=== PATIENT | female | born 1980 | race Caucasian/White ===

== ENCOUNTER 2016-07-08 20:29 | Inpatient (IN) | payer OTHER ==
[2016-07-08] MEDS: BETAMETHASONE IM SYRINGE IM SCH (22:07)
[2016-07-08] MEDS ORDERED: CALCIUM CARBONATE 500 MG CHEWABLE TAB PO PRN (22:08)
[2016-07-08] MEDS ORDERED: ACETAMINOPHEN 325 MG TAB PO PRN (22:08)
[2016-07-08] MEDS ORDERED: ZOLPIDEM TARTRATE 5 MG TAB PO PRN (22:09)
--- NOTE | 2016-07-08 22:15 | OBPROG ---
OBG Progress Note Assessment/Plan: Assessment: 35 y/o female at 24+3 wks EGA w/ bleeding - hemodynamically stable and bleeding subsiding. Radiologist just called and relayed the results of her US here tonight - it appears to be a complete posterior placenta previa w/ placenta covering the os, unlike the imaging report at the [facility]. EFW of 730gms (56%). Plan: Continue current plan as dictated in H&P - - Bedrest w/ BRP - Doptones q4 hrs. BTMZ for FLM. - Continuous tocometer to monitor for contractions - Inpatient care until no bleeding x 24 hrs. 07/08/16 22:12 ICD10 Worksheet Patient Problems: Problems Problem Status Onset Hemorrhage affecting at 23 to 26 weeks gestation, antepartum Acute Placenta previa antepartum in second trimester Acute - ICD10 Problem Qualifiers (1) Hemorrhage affecting at 23 to 26 weeks gestation, antepartum (2) Placenta previa antepartum in second trimester
[2016-07-08 22:53] LABS: % IMMATURE GRANULYOCYTES 0.5 % (0.0-1.1); ABSOLUTE IMMATURE GRANULOCYTES 0.05 10^3/uL (0.00-0.10); ADD DIFF? NO; ADD MORPH? NO; ADD SCAN? NO; ATYPICAL LYMPHOCYTE FLAG 0 (0-99); FRAGMENT RBC FLAG 0 (0-99); HEMATOCRIT 37.7 % (38.0-47.0); HEMOGLOBIN 12.8 g/dL (12.6-16.3); LEFT SHIFT FLG 0 (0-99); LIPEMIA HEMOLYSIS FLAG 90 (0-99); MEAN CELL VOLUME 94.3 fL (81.5-99.8); MEAN PLATELET VOLUME 10.1 fL (8.7-11.7); PLATELET CLUMPS FLAG 10 (0-99); PLATELET COUNT 220 10^3/uL (150-400); RED CELL DISTRIBUTION WIDTH 12.5 % (11.5-15.2)
--- NOTE | 2016-07-08 23:31 | GHP ---
[f rep st] HISTORY AND PHYSICAL DATE OF ADMISSION: 07/08/2016 CHIEF COMPLAINT: Vaginal bleeding with known marginal posterior placenta previa with most recent ul trasound showing it approximates the cervix. HISTORY OF PRESENT ILLNESS: The patient is a 35-year-old, 3, para 0-1-1-0, female at 24 wee ks and 3 days estimated gestational age by last menstrual period, consistent with first-trimester ul trasound, who presents to labor and delivery after an episode of bleeding. Patient has known margin al posterior placenta previa with most recent ultrasound showing it approximates the cervix. She rivera s had one prior episode of bleeding around 18 weeks' gestation which resolved spontaneously at the t maryana of diagnosis. She reports that she always has a little bit of vaginal discharge and did not not ice anything different. However, when she went to go to the bathroom, she realized that there was b loody vaginal discharge that had soaked through her underwear onto her pants. She denies any gushes of fluid or gushes of bleeding. It was approximately a half-dollar size amount. She denies any cr amping or contractions. She feels good movement. No other complaints. The patient has been receiving all of her ultrasounds with the [facility] with the erinatologist at the [place]. Her most recent ultrasound was on June 20 showing a low-lying suraj centa, no other specific information given on the exact location. The size of the baby at that time was consistent with her estimated due date with an estimated weight of 486 g at the 58th perc entile. There was a suspicion of an ear anomaly on the fetus, with maternal history of anomalous ea rs and hearing loss. 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 PAST SURGICAL HISTORY: Suction D and C in February 2015 for missed , tonsillectomy, ear bryant narendra, bilateral lower leg compartment syndrome, shoulder surgery 2007, Amnioport 2015. ALLERGIES: Sulfa. MEDICATIONS: Albuterol inhaler, vitamin, Pulmicort Flexhaler. PAST PERFORMANCE IMPROVEMENT CONSULTANT HISTORY: D and C in 2014. OB HISTORY: 1. In 2014, SAB with D and C for missed . 2. In 2016, 25 weeks and 3 days delivery after LUTO diagnosed with Amnioport placement. SOCIAL HISTORY: Negative for alcohol, tobacco or drug use. FAMILY HISTORY: Negative for defects, chromosomal abnormalities, mental retardation, or inher ited conditions. LABS: Blood type A positive, antibody screen negative, varicella immune, rubella immune, R TN nonreactive, urine culture negative, hepatitis B surface antigen negative, HIV negative, gonorrhe a and chlamydia negative. PHYSICAL EXAMINATION: VITAL SIGNS: Blood pressure 124/68, heart rate 72, respiratory rate 18, temp 37.1 degrees Celsius. Doptones in the 140s to 150s. Tocometer: Initially very slight possible irritability for the first 5 minutes, that then resolved. GENERAL: Not acute, no distress. Well-developed, well-bob shed female. CARDIOVASCULAR: Regular rate and rhythm. CHEST: Clear to auscultation bilaterally. ABDOMEN: Gravid and nontender. : On sterile speculum exam: The cervix appears closed with bro wn discharge noted with no active bright red bleeding. RADIOLOGY: An official ultrasound was obtained and official results pending at time of this dictati on. However, the images were reviewed in live imaging with the communications field technician, showing a cer vix that was long measuring 4.4 cm. On abdominal imaging, it appeared that the placenta was posteri or and clear of the os. However, on vaginal imaging, it appeared that there was either a tail of pl acenta versus a small amount of blood and clot extending from the placental edge over the cervix on lateral views. There was good movement, and normal cardiac activity visualized. The cervix w as seen and clearly noted to be closed and long on imaging. ASSESSMENT: Patient is a 35-year-old, 3, para 0-1-1-0, female at 24 weeks and 3 days estima ly gestational age with bleeding and with a marginal placenta previa and a second episode of bleedi ng. Currently, hemodynamically stable with bleeding subsiding and slowing. PLAN: 1. Admit for observation. 2. status reassuring, we will continue Doptones q.4 hours. Will initiate betamethasone cours e for lung maturity. 3. No signs of labor and cervix closed on visualization. 4. Bleeding: The patient's bleeding has already begun to subside with only brown discharge noted o n exam. However, since this is her second episode of bright red bleeding with a known low-lying suraj centa previa that now appears to be either a complete previa or marginal previa with some associated abruption or bleeding above the cervix, will plan for conservative management at this time with mod ified bed rest in the hospital until her bleeding has resolved for over 24 hours. We will give a co urse of steroids for lung maturity, and monitor closely for any signs of abruption or labor. A CBC and type and screen have been ordered. We will also check a Kleihauer-Betke to assure that this is not an associated small abruption associated with her low-lying placenta. I have disc ussed the possibility with the patient that she may need to be discharged on modified bed rest for t he period of time until this bleeding resolves. 5. SCDs for DVT prophylaxis. /[id number]/MODL
[2016-07-09] MEDS ORDERED: LR 1,000 ML IV PRN (06:30)
[2016-07-09] MEDS ORDERED: TERBUTALINE SULFATE 1 MG/ML VIAL IV PRN (06:30)
[2016-07-09] MEDS ORDERED: EPSOM SALT 454 GM TP PRN (06:30)
[2016-07-09] MEDS ORDERED: IBUPROFEN 600 MG TAB PO PRN (06:30)
[2016-07-09] MEDS ORDERED: OXYTOCIN/RINGERS LACTATE 1,000 ML IV PRN (06:30)
[2016-07-09] MEDS ORDERED: LIDOCAINE 1% 30 ML SDV SC PRN (06:30)
[2016-07-09] MEDS ORDERED: OLIVE OIL 118 ML BTL MISC PRN (06:30)
--- NOTE | 2016-07-09 08:40 | SOAPPROG ---
SOAP Progress Note Assessment/Plan: Assessment: 35 y.o. female at 24 4/7 weeks admitted to L&D following second episode of vaginal bleeding with placenta previa. Patient was admitted to L&D with continuous toco and EFM Q4H. VSS- afebrile. Plan: Admit patient for OBS. Continuous [place] with EFM Q4H. Betamethasone 12.5 mg IM x 2 doses. Maintain modified bedrest and anticipate discharge to home tomorrow with no further bleeding. 07/09/16 08:36 Subjective: Patient reports feeling comfortable with occasional cramping/ tightening over abdomen, < 1 x hour. Reports decreased vaginal bleeding since episode last night. Reports good movement. Denies LOF. Eating and drinking well without n/v. Appropriate mood with good support system. Objective: Laboratory Results 07/08/16 22:35 - Time Spent With Patient Time Spent With Patient: 20 minutes - Pending Discharge Pending Discharge Within 24 Hours: Yes Pending Discharge Date: 07/10/16 Pending Discharge Time: 11:00 Physical Exam - Physical Exam General Appearance: WD/WN, alert, no apparent distress EENT: normal ENT inspection Neck: non-tender, full range of motion, normal inspection Respiratory: lungs clear, normal breath sounds Cardiac/Chest: regular rate, rhythm Abdomen: non-tender, soft Pelvic Exam: normal external exam Rectal: deferred Back: Normal inspection Skin: normal color, warm/dry Lymphatic: no adenopathy Extremities: normal range of motion, non-tender, normal inspection Neuro/Psych: alert, normal mood/affect, oriented x 3 ICD10 Worksheet Patient Problems: Problems Problem Status Onset Hemorrhage affecting at 23 to 26 weeks gestation, antepartum Acute Placenta previa antepartum in second trimester Acute
[2016-07-09] MEDS: PRENATAL VIT 1 EACH TAB PO SCH (10:48)
[2016-07-09] MEDS: DOCUSATE SODIUM 100 MG CAP PO SCH ×2 (10:48→22:01)
[2016-07-09] MEDS: OMEGA-3 FATTY ACIDS 1,000 MG CAP PO SCH (11:39)
[2016-07-09] MEDS: BETAMETHASONE IM SYRINGE IM SCH (22:01)
[2016-07-10] MEDS: PRENATAL VIT 1 EACH TAB PO SCH (07:47)
[2016-07-10] MEDS: DOCUSATE SODIUM 100 MG CAP PO SCH (07:47)
[2016-07-10] MEDS: OMEGA-3 FATTY ACIDS 1,000 MG CAP PO SCH (07:47)
--- NOTE | 2016-07-12 13:48 | GDS ---
[f rep st] DISCHARGE SUMMARY ADMISSION DIAGNOSES: 1. Intrauterine at 24 weeks and 3 days. 2. Vaginal bleeding. DISCHARGE DIAGNOSES: 1. Intrauterine at 24 weeks and 5 days. 2. Posterior placenta previa. HOSPITAL COURSE: The patient was admitted for observation and evaluated for vaginal bleeding at 24 weeks gestation. This was her second episode of bleeding during this . She had evaluation by radiology during this admission with an ultrasound confirming the posterior placenta previa. Elodia trevizo was given steroids for lung maturity. No tocolysis was needed, as she was not rosalio r egularly or feeling any symptoms of labor. During her hospitalization, her bleeding slowed and stop ped completely for 24 hours. The status remained reassuring with appropriate Doptones for her gestational age. She was discharged in stable and good condition. DISCHARGE DIET: Regular. DISCHARGE ACTIVITY: Modified bed rest. DISCHARGE MEDICATIONS: vitamin, albuterol inhaler as needed. FOLLOW UP: With Dr. Felipe in 1 week or sooner as needed. labor and bleeding precautions were reviewed. /[id number]/MODL
== END 2016-07-10 10:20 | disposition home or self-care (01) | DRG 782 ==
LOC: FLD 20:29 → OBSVTOIN 20:29
PROVIDERS: ADMIT Obstetrics & Gynecology; ATTEND Obstetrics & Gynecology
DX: O44.32 Partial placenta previa with hemorrhage, second trimester (principal); O09.522 Supervision of elderly multigravida, second trimester; Z3A.24 24 weeks gestation of pregnancy
CPT/HCPCS: J0702

== ENCOUNTER 2016-07-28 07:02 | Inpatient (IN) | payer OTHER ==
--- NOTE | 2016-07-28 09:38 | OBPROG ---
OBG Progress Note Assessment/Plan: Assessment: 35 y/o female at 27+2 wks EGA w/ low lying placenta vs. previa w/ 3rd episode of bleeding - hemodynamically stable and scant bleeding since arrival to L&D: Plan: 1) status: reassuring w/ NST appropriate for gestational age. s/p BTMZ course during last admission at 24 weeks. 2) Bleeding: SSE today shows no active bleeding, +cervical mucous and blood clot at os that was removed, no active bleeding noted. No signs of ruptured membranes - negative pooling/valsalva and ferning negative. pH elevated, but likely from blood. Amnisure collected initially due to scan blood in posterior vaginal vault, will d/w MFM about sending it. - Will get formal US today by MFM for their rec's and guidance, appreciate consult - Bedrest w/ BRP - Continue EFM/toco monitoring. - Inpatient care until no bleeding x at least 24 hrs; suspect we may need to hospitalize until delivery since this is her 3rd episode of bleeding. 07/28/16 09:35 Full H&P to follow. 07/28/16 09:40 Subjective: No complaints, no cramping or pain. Hx bleeding this AM at 0500 and at 0630, + feeling of wetness as well with bleeding. No continued leakage noted. Good movement noted. - SVE Dilation (cm): 1 Effacement (%): 0 Station: -3 (by SSE: SSE: cervical mucous and smal 1-2cm clot at os, clot moved away w/ can swab, no further bleeding noted. Negative pooling/valsalva/ ferning. pH elevated.) ICD10 Worksheet Patient Problems: Problems Problem Status Onset Hemorrhage affecting at 23 to 26 weeks gestation, antepartum Acute Placenta previa antepartum in second trimester Acute
[2016-07-28 14:45] LABS: % IMMATURE GRANULYOCYTES 0.9 % (0.0-1.1); ADD DIFF? NO; ADD MORPH? NO; ADD SCAN? NO; ATYPICAL LYMPHOCYTE FLAG 0 (0-99); FRAGMENT RBC FLAG 0 (0-99); HEMATOCRIT 40.1 % (38.0-47.0); HEMOGLOBIN 13.9 g/dL (12.6-16.3); LEFT SHIFT FLG 20 (0-99); LIPEMIA HEMOLYSIS FLAG 90 (0-99); MEAN CELL HEMOGLOBIN 32.5 pg (27.9-34.1); MEAN CELL HEMOGLOBIN CONCENTR. 34.7 g/dL (32.4-36.7); MEAN CELL VOLUME 93.7 fL (81.5-99.8); MEAN PLATELET VOLUME 10.2 fL (8.7-11.7); PLATELET CLUMPS FLAG 0 (0-99); PLATELET COUNT 195 10^3/uL (150-400); RED BLOOD CELL COUNT 4.28 10^6/uL (4.18-5.33); RED CELL DISTRIBUTION WIDTH 12.6 % (11.5-15.2)
--- NOTE | 2016-07-28 18:57 | GHP ---
[f rep st] HISTORY AND PHYSICAL DATE OF ADMISSION: 07/28/2016 CHIEF COMPLAINT: Vaginal bleeding. HISTORY OF PRESENT ILLNESS: The patient is a 36-year-old 3, para 0-1-1-0 at 27 weeks 2 days estimated gestational age with due date of October 25, 2016, who presents for her 3rd episode of blee ding. She states that she woke up in the morning to find bleeding and the passage of a blood clot. This occurred at approximately 5 o'clock in the morning. She had a repeat episode of bleeding at 6 a.m. and came to the hospital. She denies any cramping, pelvic pressure, or contractions. Earlier in the , she was diagnosed with a placenta previa that transitioned to a low-lying placent a. She has had 2 prior bleeds around 18 and 24 weeks. Both were limited and resolved. She receive d steroids at 24 weeks after the 2nd bleed. Her prior was complicated by a bladder outlet obstruction that resulted in a deliv sharmin around 25 weeks after PPROM and attempted amnio port placement. Unfortunately, it also resulted in demise of the . The patient has no other complaints at this time. PAST MEDICAL HISTORY: Chronic cough. PAST SURGICAL HISTORY: Suction D and C for miscarriage, tonsillectomy, ear surgery, bilateral nagi rtment release of lower legs, shoulder surgery, amnio port placement and removal. OBSTETRIC HISTORY: 1. History of spontaneous vaginal delivery with demise in October 2015. 2. History of missed resulting in a D and C in February 2015. ALLERGIES: Sulfa. MEDICATIONS: vitamin 1 tablet orally once daily. COURSE: Significant for the followin. AMA with normal cell-free DNA screening, normal nuchal translucency ultrasound and AFP. 2. Posterior placenta previa which has officially now resolved. 3. Chronic cough, seeing Pulmonary. LABS: Blood type A positive, antibody screen negative. Hematocrit 41 in the 1st trimester . Varicella immune. Rubella immune. RPR nonreactive. Hepatitis B surface antigen negative. HIV negative. Gonorrhea and chlamydia negative. One-hour GTT elevated and normal 3-hour GTT. PHYSICAL EXAMINATION: VITAL SIGNS: Blood pressure 115/65, heart rate 80, respiratory rate 16, temp 36 degrees Celsius. heart rate tracing 140s with accelerations and moderate variability pres ent, consistent with a reactive nonstress test. TOCOMETER: No contractions noted. CHEST: Clear t o auscultation bilaterally. No wheezes, rales, or rhonchi. CARDIOVASCULAR: Regular rate and rhyth m. ABDOMEN: Soft, gravid, and nontender. PELVIC: Sterile speculum exam was performed. Small jaren unt of clear, thick cervical discharge at the os with a small clot at the cervical os. No active bl eeding. No pooling of fluid. The clot was gently wiped away and no active bleeding was noted. The re is negative Valsalva. Ferning after a swab was obtained and looked at under the microscope. The pH was slightly elevated, but this was thought to be due to the blood that was present in the vagin al vault. There was minimal blood in the vault at that time. ULTRASOUND: (Performed by perinatologist.) Estimated weight of 1181 g (72%), with normal amn iotic fluid volume, and evidence of a posterior placenta with no previa or low-lying status. Cervic al length was 4.7 to 5.0 cm without insufficiency. There is a small clot located in the upper cervi x near the internal os. ASSESSMENT: Patient is a 36-year-old, 3, para 1 female at 27 weeks 2 days estimated gestati onal age with vaginal bleeding. The chronicity of her bleeding is consistent with a chronic partial abruption. There are no signs of placenta previa or low-lying placenta today on ultrasound. PLAN: 1. Continue inpatient status for 48-72 hours depending on her clinical course to assure stability. 2. Rh positive, no RhoGAM needed. 3. status is currently reassuring, plan on NSTs t.i.d. 4. Counseling: The patient was counseled regarding the suspected diagnosis and the presence of a s mall clot at the inside of the internal os which may result in passage of another clot or brown blee ding. Discussed the risks of chronic abruptions which increase the risk of delivery, increa se the risk of future bleeding, PPROM, labor, and can affect status including growth. Consult ed the perinatologist, who recommends that if there is no evidence of labor or ongoing bleeding, the n discharge home is reasonable. Will hold on a rescue course of steroids unless there is evidence t hat delivery is indicated. If there is concern for less than 32 weeks, will plan on dayna crandall for neuro protection. Will also plan on doing a GBS swab. /[id number]/MODL
[2016-07-28] MEDS ORDERED: ZOLPIDEM TARTRATE 5 MG TAB PO PRN (20:26)
[2016-07-28] MEDS ORDERED: CALCIUM CARBONATE 500 MG CHEWABLE TAB PO PRN (20:30)
[2016-07-28] MEDS ORDERED: ACETAMINOPHEN 325 MG TAB PO PRN (20:30)
--- NOTE | 2016-07-29 12:32 | OBPROG ---
OBG Progress Note Assessment/Plan: Assessment: at 27w3d her with 3rd episode of vaginal bleeding this , now resolved H/o previa, now resolved to normal posterior placenta status reassuring No evidence of active abruption or labor, likely partial chronic abruption per MFM consultation H/o fetus with LUTO, demised after PPROM at 25 weeks s/p BMTZ on prior admission () Up to date on routine care, had elevated 1 hr glucola with normal 3hr Plan: Continue inpatient admission for 48-72 hours from bleeding episode Magnesium indicated if imminent delivery NST BID Remainder of plan per Dr. Felipe's H&P yesterday 07/29/16 12:31 07/29/16 12:36 Subjective: [place] well overnight. Very mild cramping that lasted for only a short period of time, now resolved. Slightly dark discharge when wiping, otherwise no further bleeding. Baby is active. Objective: 07/28/16 14:35 Patient ABO/Rh A POSITIVE 07/28/16 14:35 Gen: NAD, sitting up working on computer Resp: unlabored CV: RRR Abd: gravid, soft, nontender Ext: no edema FHR (bpm): 140 FHR Pattern Variability: Moderate FHR Category: 1 Membranes: Intact ICD10 Worksheet Patient Problems: Problems Problem Status Onset Hemorrhage affecting at 23 to 26 weeks gestation, antepartum Acute Placenta previa antepartum in second trimester Acute
[2016-07-30] MEDS ORDERED: LR 1,000 ML IV ONE (03:30)
--- NOTE | 2016-07-30 04:54 | OBPROG ---
OBG Progress Note Assessment/Plan: Assessment: at 27w4d her with 3rd episode of vaginal bleeding this , now resolved Now with contractions overnight, did not resolve with IV fluids, cervix closed. Ongoing now for 2 hours. H/o previa, now resolved to normal posterior placenta status reassuring, now breech H/o fetus with LUTO, demised after PPROM at 25 weeks after amnioport placement s/p BMTZ on prior admission (07/08-) Up to date on routine care, had elevated 1 hr glucola with normal 3hr Plan: Phone call to MFM asset protection representative at [facility] to discuss further plan of care ( continued observation +/- tocolytics vs starting magnesium and transfer to [facility] given her gestational age). Current asset protection representative perinatologist is scrubbed into the operating room and will call back when available. Pt currently stable, in no discomfort, status reassuring. Subjective: Called by RN at 0300 as pt got up to use bathroom and then felt a few strong contractions. toco was placed and she found found to be having irregular contractions, about 5 over the course of an hour. FHR reassuring. After the few stronger contractions the tightening became more like mild cramping. 1 liter IV fluids were given, however she has ongoing cramping that is being picked up on the monitor, about every 4-5 minutes. Denies VB, LOF. Objective: 07/28/16 14:35 Patient ABO/Rh A POSITIVE 07/28/16 14:35 Gen: alert, awake, NAD Abd: soft, nontender SVE: closed/long/soft/midposition Bedside US: SIUP in bubba breech presentation, head maternal left - SVE Dilation (cm): 0 Effacement (%): 0 Station: -3 FHR (bpm): 150 FHR Pattern Variability: Moderate Membranes: Intact ICD10 Worksheet Patient Problems: Problems Problem Status Onset Hemorrhage affecting at 23 to 26 weeks gestation, antepartum Acute History of premature rupture of membranes (PROM) in previous , currently Acute - ICD10 Problem Qualifiers (1) Placenta previa antepartum in second trimester (2) History of premature rupture of membranes (PROM) in previous , currently Qualifiers: Trimester: T
[2016-07-30] MEDS ORDERED: NIFEdipine 10 MG CAP PO ONE (05:49)
--- NOTE | 2016-07-30 12:54 | OBPROG ---
OBG Progress Note Assessment/Plan: Assessment: 35 y/o female at 27+4 wks EGA chronic partial abruption w/ 3rd episode of bleeding - hemodynamically stable and no bleeding x 12 hrs (just brown), no BRB since admission: Plan: 1) status: reassuring w/ NST appropriate for gestational age. s/p BTMZ course during last admission at 24 weeks. 2) Bleeding: stable and improving; only brown blood noted last night w/ passage of small clot 2 nights ago, that was likely the clot seen on her imaging. 3) Contractions: No cervical change w/ her contractions overnight and stable CL. Will monitor x 24 hrs. Consider restarting nifedipine if ctx recur. No signs of labor at this time. 4) Activity: Bedrest w/ BRP 5) monitoring: Continue EFM/toco monitoring. 6) Dispo: Inpatient care until no bleeding x at least 24 hrs; this would be tomorrow AM. 07/30/16 12:54 Subjective: Pt reports no bleeding since brown discharge noted last night. No other bleeding at all. She had ctx early this AM that were moderate in strength; no cervical change and Dr Hong evaluated her at that time; her CL was also stable and unchanged from earlier this week. She reports she hasn't felt anything since emptying her bladder over the last 20 minutes. No lof and good FM. Objective: 07/28/16 14:35 Patient ABO/Rh A POSITIVE 07/28/16 14:35 Current Contraction Pattern: Irregular FHR (bpm): 150 FHR Pattern Variability: Moderate FHR Category: 1 ICD10 Worksheet Patient Problems: Problems Problem Status Onset Hemorrhage affecting at 23 to 26 weeks gestation, antepartum Acute History of premature rupture of membranes (PROM) in previous , currently Acute Placental abruption Acute - ICD10 Problem Qualifiers (1) Placental abruption Qualifiers: Trimester: third trimester Qualified Code(s): O45.93 - Premature separation of placenta, unspecified, third trimester
[2016-07-30 22:26] LABS: % IMMATURE GRANULYOCYTES 1.1 % (0.0-1.1); ABSOLUTE IMMATURE GRANULOCYTES 0.13 10^3/uL (0.00-0.10); ADD DIFF? NO; ADD MORPH? NO; ADD SCAN? NO; ATYPICAL LYMPHOCYTE FLAG 0 (0-99); FRAGMENT RBC FLAG 0 (0-99); HEMATOCRIT 39.5 % (38.0-47.0); HEMOGLOBIN 13.3 g/dL (12.6-16.3); LEFT SHIFT FLG 10 (0-99); LIPEMIA HEMOLYSIS FLAG 80 (0-99); MEAN CELL HEMOGLOBIN 32.4 pg (27.9-34.1); MEAN CELL HEMOGLOBIN CONCENTR. 33.7 g/dL (32.4-36.7); MEAN CELL VOLUME 96.3 fL (81.5-99.8); MEAN PLATELET VOLUME 10.2 fL (8.7-11.7); PLATELET CLUMPS FLAG 0 (0-99); PLATELET COUNT 191 10^3/uL (150-400); RED CELL DISTRIBUTION WIDTH 12.5 % (11.5-15.2)
--- NOTE | 2016-07-31 09:00 | OBPROG ---
OBG Progress Note Assessment/Plan: Assessment: 35 y/o female at 27+5 wks EGA chronic partial abruption w/ 3rd episode of bleeding - HD#4, hemodynamically stable but with recurrent episode of BRB last night: Plan: 1) status: reassuring w/ NST appropriate for gestational age. s/p BTMZ course during last admission at 24 weeks. 2) Bleeding: recurrent episode of BRB overnight that is concerning for continued abruption. No active bleeding at this time. 3) Contractions: Contractions noted last night with episode of bleeding; now irregular q10-15 minutes, not feeling them. 4) Activity: Bedrest w/ BRP 5) monitoring: Continue EFM/toco monitoring. 6) Dispo: Discussed my concern that she had a recurrent episode of BTB that was without any trigger. Due to her early gestational age and risk of needing delivery with future episode of large volume bleed or persistent, active hemorrhage, I discussed the need for transfer to the [facility]. I spoke with Dr Maty De Guzman, [facility] fellow, who agrees with this plan and accepts care. Pt counseled and plan of care reviewed; she agrees to proceed. 07/31/16 09:04 Subjective: Pt had an episode of BRB last night that filled the toilet around 2200. She then passed a small clot about 1-2 hours later while feeling some irregular contractions. She has had no further bleeding and denies any contractions at this time. No lof and good FM. Objective: 07/30/16 22:20 Patient ABO/Rh A POSITIVE 07/28/16 14:35 FHT 140's reassuring and reactive for gestational age [place] irregular ctx q10-15 minutes - Physical Exam General Appearance: WD/WN, alert, no apparent distress Respiratory: lungs clear Cardiac/Chest: regular rate, rhythm Abdomen: normal bowel sounds, non-tender, soft, other (gravid, nontender) Genitourinary: other (no blood on peripad) ICD10 Worksheet Patient Problems: Problems Problem Status Onset Hemorrhage affecting at 23 to 26 weeks gestation, antepartum Acute History of premature rupture of membranes (PROM) in previous , currently Acute Placental abruption Acute - ICD10 Problem Qualifiers (1) Placental abruption Qualifiers: Trimester: third trimester Qualified Code(s): O45.93 - Premature separation of placenta, unspecified, third trimester
--- NOTE | 2016-07-31 14:05 | GDS ---
[f rep st] DISCHARGE SUMMARY ADMISSION DIAGNOSES: 1. Intrauterine at 27 weeks and 2 days estimated gestational age. 2. Vaginal bleeding in the third trimester. 3. History of low-lying placenta. DISCHARGE DIAGNOSES: 1. Intrauterine at 27 weeks and 5 days estimated gestation. 2. Chronic partial abruption. HOSPITAL COURSE: The patient is a 36-year-old 3, para 0-1-1-0 female, who was admitted at 2 7 weeks and 2 days estimated gestational age after having her third episode of bleeding. She had 2 prior episodes of bleeding, first at 18 weeks and then at 24 weeks. She had a history of receiving a course of steroids at the 24-week admission period. In the past, she was initially thought to hav e a posterior placenta previa, which then became a low-lying placenta previa. On admission, she had no active bleeding, but small clot at the cervical os. She was not rosalio or cramping at that time. She underwent an ultrasound by the perinatologist that confirmed that the placenta was poste rior without a previa. There was a small clot located near the internal os at the upper end of the cervix. The growth was normal, with an estimated weight of 1181 g at the 72nd percentil e. The recommendation was for continued inpatient care for a few days to assure stability. She had a CBC done at that time, which was normal with hematocrit of 40. On hospital day #2, the patient remained hemodynamically stable, with no episodes of bleeding. The status remained reassuring with NSTs that were reactive and appropriate for gestational age. On hospital day #3, early in the morning, the patient was noted to have some contractions that did n ot resolve with IV fluids. She was evaluated by Dr. Hong relations coordinator, and the cervix was closed, and s he had a transvaginal ultrasound performed, showing that her cervical length was stable at 4.8 to 4. 9 cm, with no funneling with fundal pressure and no clot at the internal os. The patient incidental ly had reported that she passed that clot earlier in the night. She had a GBS collected at that zacarias e, that has just now returned as being positive. The patient remained stable on the rest of that da y, with no further bright red bleeding and only brown discharge. On hospital day #4, the patient had an episode of bright red bleeding overnight that was without any triggers and reportedly filled the toilet with bright red blood. She reported having some irregula r contractions for the next 1-2 hours, which then subsided, and she was allowed to sleep. She had n o further active bleeding or bright red bleeding noted over the next 6 hours. Due to that episode o f recurrent bright red bleeding, which is now the patient's fourth episode of bleeding, I consulted the perinatologist at the [facility] and discussed her case with Dr. Maty De Guzman. It was agreed th at due to the patient's early gestational age at 27 weeks, that the patient be transferred to the [facility] in case further active bleeding occurs that is either a large volume bleed or persistent ac tive hemorrhaging, which would require delivery due to her early gestational age and the available N ICU at the [facility], which could appropriately care for her baby. The patient was counseled regar ding this plan, and she agreed to proceed with transfer of care. LABS: Serial CBCs on 07/28/2016 and 07/30/2016 were stable, with hematocrit of 40 and 39.5, respect ively. Her platelets also were normal at 191. She had a GBS swab collected that was positive on 2016. RADIOLOGY: Ultrasound performed during this hospitalization on July 28, 2016 revealed a fetus that wa s with normal growth appropriately consistent with her dates. Estimated weight was 1181 g, at the 72nd percentile, normal amniotic fluid volume noted, posterior placenta with no previa or low l marifer status, normal cervical length of 4.7 to 5 cm. DISPOSITION: Patient was transferred by ambulance to the [facility]. DIET: Regular. ACTIVITY: Modified bed rest. Copy requested to: Dr. [facility] Dr. Maty De Guzman /[id number]/MODL
== END 2016-07-31 11:30 | disposition short-term general hospital (02) | DRG 782 ==
LOC: FLD 07:02 → OBSVTOIN 07-29 09:50
PROVIDERS: ADMIT Obstetrics & Gynecology; ATTEND Obstetrics & Gynecology
DX: O44.32 Partial placenta previa with hemorrhage, second trimester (principal); Z3A.27 27 weeks gestation of pregnancy; O09.522 Supervision of elderly multigravida, second trimester
CPT/HCPCS: G0378

== ENCOUNTER 2017-01-07 22:11 | Emergency (ER) | payer OTHER ==
[2017-01-07 22:22] VITALS: RESP 16
[2017-01-07] MEDS ORDERED: NS 1,000 ML IV ONE (23:00)
--- NOTE | 2017-01-07 23:32 | EDPHY ---
H & P Stated Complaint: left sided abd pain HPI/ROS: HPI CHIEF COMPLAINT: Cough, abdominal pain HISTORY OF PRESENT ILLNESS: This patient very pleasant 36 year old female, otherwise healthy she does have significant past medical history for chronic bronchitis and chronic cough. Additionally asthma, she states she has been coughing for days now. Nonproductive. She states very similar to her chronic cough. She has noticed since coughing over and over again she has developed some left upper quadrant abdominal pain at her incision site. She previously had abdominal surgery for a port placement. She has noticed since coughing vigorously she has developed some pain at the incision site. Currently she states that she denies any significant abdominal pain at this time or productive cough fever or vomiting. Here in the emergency room the patient has declined any workup for her cough specifically declined any breathing treatment cough medicine or x-ray. She declined prednisone. She has a data entry analyst follows her closely. She states her cough is chronic. She decided come the emergency room tonight due to left upper quadrant abdominal pain at her incision site from coughing. Past Medical History: Denies significant medical history except for chronic cough and asthma Past Surgical History: , abdominal port. Social History: Denies daily use of drugs alcohol tobacco. Family History: Noncontributory ROS REVIEW OF SYSTEMS: A comprehensive 10 point review of systems is otherwise negative aside from elements mentioned in the history of present illness. Exam Constitutional appears well nontoxic, triage nursing summary reviewed, vital signs reviewed, awake/alert. Eyes normal conjunctivae and sclera, EOMI, PERRLA. HENT normal inspection, atraumatic, moist mucus membranes, no epistaxis, neck supple/ no meningismus, no raccoon eyes. Respiratory chronic cough on exam, bronchitic, clear to auscultation bilaterally, normal breath sounds, no respiratory distress, no wheezing. Cardiovascular rate normal, regular rhythm, no murmur, no edema, distal pulses normal. Gastrointestinal in the left mid abdomen there is an incision present. There is no palpable hernia. Her abdomen is soft nontender on exam, soft, non- tender, no rebound, no guarding, normal bowel sounds, no distension, no pulsatile mass. Genitourinary no CVA tenderness. Musculoskeletal no midline vertebral tenderness, full range of motion, no calf swelling, no tenderness of extremities, no meningismus, good pulses, neurovascularly intact. Skin pink, warm, & dry, no rash, skin atraumatic. Neurologic awake, alert and oriented x 3, AAOx3, moves all 4 extremities equally, motor intact, sensory intact, CN II-XII intact, normal cerebellar, normal vision, normal speech. Psychiatric normal mood/affect. Heme/Lymph/Immune no lymphadenopathy. Differential Diagnosis: Includes but is not limited to in a particular order, acute bronchitis, asthma, chronic cough, acute on chronic cough, chronic bronchitis, abdominal incision pain, hernia Medical Decision Making: Plan for this patient she declined any workup here for her cough. She is followed closely by a data entry analyst. As for abdominal pain her abdomen is soft nontender she is not vomiting. She has no significant tenderness on exam. She has no palpable hernia. I did explain she coughs that this may be causing her incisional pain it is possible she developing a small hernia present. Re-evaluation: 2328: I did explain to the patient that if she develops worsening abdominal pain fever vomiting or severe pain or hardness her bulging at her incisional site she should return to the emergency room. We did discuss hernia and hernia return precautions as well as abdominal pain return precautions. I did encourage her to pick closely control her cough. Has a cough may cause further abdominal pain at her incision site. She understands she is followed by a data entry analyst. She will work data entry analyst follow up her cough. Additionally I recommend she follows up with primary care doctor about incision site. Also referred her to Dr. JAMMIE Morris for outpatient evaluation of hernia. I do not appreciate a palpable hernia on exam at this time. Return precautions given to this patient. She understands return emergency room she develops worsening abdominal pain fever vomiting. Source: Patient - Personal History LMP (Females 10-55): Extended Cycle BCP/Inj Current Tetanus/Diphtheria Vaccine: Yes Tetanus Vaccine Date: 2009 - Medical/Surgical History Hx Asthma: Yes Hx Chronic Respiratory Disease: No Hx Diabetes: No Hx Cardiac Disease: No Hx Renal Disease: No Hx Cirrhosis: No Hx Alcoholism: No Hx HIV/AIDS: No Hx Splenectomy or Spleen Trauma: No Other PMH: Hx Bleeding at 18 weeks. 25 week demise. h/o chronic cough in winter -r/t asthma-uses inhaler seasonally. suction D&C, tonsillectomy, ear sugery- left, bilateral compartment release in lower legs, left shoulder surgery - Social History Smoking Status: Never smoked Constitutional: Initial Vital Signs Temperature (C) 36.5 C 01/07/17 22:19 Heart Rate 70 01/07/17 22:19 Respiratory Rate 16 01/07/17 22:19 Blood Pressure 115/76 01/07/17 22:19 O2 Sat (%) 96 01/07/17 22:19 O2 Delivery Mode Room Air Allergies/Adverse Reactions: chlorhexidine Allergy (Verified 01/07/17 22:22) Rash Sulfa (Sulfonamide Antibiotics) Allergy (Verified 01/07/17 22:22) Home Medications: Medication Instructions Recorded [place]-3 Fatty Acids [Fish Oil 1000 1,000 mg PO DAILY #0 cap 07/10/16 mg (*)] Vit27&Calcium/Iron/FA 1 each PO DAILY8 #0 tab 07/10/16 [] Breo Ellipta 100-25 Mcg INH 01/07/17 [place] Packet 01/07/17 Departure - Departure Disposition: Home, Routine, Self-Care Clinical Impression: Cough Abdominal pain Qualifiers: Abdominal location: unspecified location Qualified Code(s): R10.9 - Unspecified abdominal pain Condition: Good Instructions: Chronic Cough (ED) Additional Instructions: 1. Please return immediately to the emergency room if develops worsening abdominal pain fever vomiting. 2. Follow up with her primary care doctor. Referrals: Hansa Lemon MD [Primary Care Provider] - As per Instructions
[2017-01-07 23:36] VITALS: BP 124/78; PULSE 72; TEMP 97.9; O2SAT 98
== END 2017-01-07 23:36 | disposition home or self-care (01) ==
DX: R05 Cough (principal); R10.9 Unspecified abdominal pain; J45.909 Unspecified asthma, uncomplicated

== ENCOUNTER → 2017-01-19 | Outpatient (CLI) | payer OTHER | LOC: FIMAGING 11:29 | PROVIDERS: ATTEND Obstetrics & Gynecology | DX: Z31.69 Encounter for other general counseling and advice on procreation (principal) ==